=== PATIENT | female | born 1955 | race Caucasian/White ===

== ENCOUNTER 2022-12-20 08:32 | Outpatient (CLI) | payer MEDICARE, SELFPAY ==
--- NOTE | 2022-12-20 10:30 | NEURO_ITS ---
Impression: # Complains of left heel pain. No history of trauma. # Left posterior tibial proximal stimulation with polyphasic responses; suggesting proximal involvement. # Normal needle/EMG exam. # Clinical correlation recommended. Nerve Conduction Studies Anti Sensory Summary Table Stim Site NR Peak (ms) P-T Amp (?V) Site1 Site2 Delta-P (ms) Dist (cm) Harpal (m/s) Left Sup Fibular Anti Sensory (Ant Lat Mall) 14 cm 3.3 23.4 14 cm Ant Lat Mall 3.3 16.0 48 Right Sup Fibular Anti Sensory (Ant Lat Mall) 14 cm 3.6 21.1 14 cm Ant Lat Mall 3.6 16.0 44 Left Sural Anti Sensory (Lat Mall) Calf 3.6 4.2 Calf Lat Mall 3.6 16.0 44 Right Sural Anti Sensory (Lat Mall) Calf 3.8 17.0 Calf Lat Mall 3.8 16.0 42 Motor Summary Table Stim Site NR Onset (ms) O-P Amp (mV) Site1 Site2 Delta-0 (ms) Dist (cm) Harpal (m/s) Left Lateral Plantar Motor (ADM) Med Mall 3.8 1.8 Right Lateral Plantar Motor (ADM) Med Mall 3.9 3.0 Left Peroneal Motor (Vastus Med) Ankle 3.9 2.5 Popit Ankle 7.9 37.0 47 Popit 11.8 2.5 Right Peroneal Motor (Vastus Med) Ankle 3.8 7.0 Popit Ankle 8.6 40.0 47 Popit 12.4 5.7 Left Tibial Motor (Abd Ambrocio Brev) Ankle 4.0 4.0 Knee Ankle 8.7 43.0 49 Knee 12.7 1.7 Right Tibial Motor (Abd Ambrocio Brev) Ankle 4.1 5.3 Knee Ankle 8.9 42.0 47 Knee 13.0 4.3 F Wave Studies NR F-Lat (ms) L-R F-Lat (ms) Left Peroneal (Mrkrs) (EDB) 50.67 1.17 Right Peroneal (Mrkrs) (EDB) 51.83 1.17 Left Tibial (Mrkrs) (Abd Hallucis) 50.33 1.47 Right Tibial (Mrkrs) (Abd Hallucis) 51.80 1.47 EMG Side Muscle Nerve Root Ins Act Fibs Amp Dur Recrt Comment Right AntTibialis Dp Br Fibular L4-5 Nml Nml Nml Nml Nml Right Gastroc Tibial S1-2 Nml Nml Nml Nml Nml Right Fibularis Long Sup Br Fibular L5-S1 Nml Nml Nml Nml Nml Right Flex Dig Long Tibial L5-S2 Nml Nml Nml Nml Nml Right Ext Dig Brev Dp Br Fibular L5, S1 Nml Nml Nml Nml Nml Left AntTibialis Dp Br Fibular L4-5 Nml Nml Nml Nml Nml Left Gastroc Tibial S1-2 Nml Nml Nml Nml Nml Left Fibularis Long Sup Br Fibular L5-S1 Nml Nml Nml Nml Nml Left Flex Dig Long Tibial L5-S2 Nml Nml Nml Nml Nml Left Ext Dig Brev Dp Br Fibular L5, S1 Nml Nml Nml Nml Nml Right QuadratusFem QuadFemoris L4-5, S1 Nml Nml Nml Nml Nml Left QuadratusFem QuadFemoris L4-5, S1 Nml Nml Nml Nml Nml MTDD
== END 2022-12-20 08:33 | disposition home or self-care (01) ==
PROVIDERS: PCP Internal Medicine; Visit Provider Internal Medicine
DX: Z01.818 Encounter for other preprocedural examination (principal); G60.9 Hereditary and idiopathic neuropathy, unspecified; M79.672 Pain in left foot
CPT/HCPCS: 95886; 95911